=== PATIENT | female | born 1980 | race Caucasian/White ===

== ENCOUNTER 2016-12-12 06:34 | Emergency (ER) | payer OTHER ==
[~2016-12-12] VITALS: Ht 160 cm; Wt 76.2 kg
[2016-12-12 06:36] VITALS: Ht 160 cm; Wt 76.2 kg
[2016-12-12] MEDS ORDERED: ACETAMINOPHEN 500 MG TAB PO STA (07:04)
--- NOTE | 2016-12-12 07:16 | ERD ---
ER Documentation Chief Complaint Date/Time DATE: 12/12/16 TIME: 07:11 Chief Complaint lac right middle finger lac HPI This is a 36-year-old female who presents to the emergency department today for a laceration on her middle finger of her right hand. Patient states she slammed her finger in a door this morning. She has not taken any medication for the pain. Denies any fevers or chills. ROS All systems reviewed and are negative except as per history of present illness. Medications Home Meds Active Scripts Ibuprofen* (Motrin*) 600 Mg Tab, 600 MG PO Q6, #30 TAB Prov:BRAXTON FAJARDO PA-C 12/12/16 Hydrocodone/Acetaminophen (Sterling 5-325 Tablet) 1 Each Tablet, 1 TAB PO Q6H Y for PAIN, #10 TAB Prov:BRAXTON FAJARDO PA-C 12/12/16 Cephalexin* (Keflex*) 500 Mg Capsule, 500 MG PO QID for 7 Days, CAP Prov:BRAXTON FAJARDO PA-C 12/12/16 Allergies Allergies: Coded Allergies: No Known Drug Allergies (Verified Allergy, Unknown, 12/12/16) PMhx/Soc Medical and Surgical Hx: pt denies Medical Hx, pt denies Surgical Hx Physical Exam Vitals Vital Signs Date Time Temp Pulse Resp B/P Pulse Ox O2 Delivery O2 Flow Rate FiO2 12/12/16 06:36 97.8 82 18 139/78 99 Physical Exam Const: NAD Head: Atraumatic Eyes: Normal Conjunctiva ENT: Normal External Ears, Nose and Mouth. Neck: Full range of motion..~ No meningismus. Resp: Clear to auscultation bilaterally Cardio: Regular rate and rhythm, no murmurs Abd: Soft, non tender, non distended. Normal bowel sounds Skin: Right hand middle finger skin avulsion on the palmar aspect at the DIP joint. Bleeding well controlled Back: No midline or flank tenderness MSK: Right hand middle finger skin avulsion on the palmar aspect of the DIP joint. Bleeding well controlled. Full active range of motion in the joint and finger. Pulses 2+. Good cap refill sensation intact Neur: Awake and alert Psych: Normal Mood and Affect Results 24 hrs Current Medications Medications (Trade) Dose Ordered Sig/Pankaj Route PRN Reason Start Time Stop Time Status Last Admin Dose Admin Acetaminophen (Tylenol Tab) 500 mg ONCE STAT PO 12/12/16 07:04 12/12/16 07:06 DC 12/12/16 07:10 Diphtheria/ Tetanus/Acell Pertussis (Adacel) 0.5 ml ONCE ONCE IM* 12/12/16 07:30 12/12/16 07:31 DC 12/12/16 07:11 DIAGNOSTIC IMAGING REPORT Patient: MYRANDA STACK : 1980 Age: 36 Sex: F MR #: [id number] DOS: 12/12/16 0000 Ordering MD: BRAXTON FAJARDO PA-C Location: [facility] Room/Bed: PROCEDURE: XR Finger. CLINICAL INDICATION: Pain and trauma TECHNIQUE: Three views of the right third finger . COMPARISON: None. FINDINGS: The osseous structures are intact. No destructive bony lesions are observed. Interosseous spaces appear normal. Soft tissue irregularity over the tip of the third finger is observed. IMPRESSION: Soft tissue irregularity over the tip of the third finger. Finding likely reflects a site of soft tissue injury/laceration. Intact osseous structures. If there is high clinical suspicion for bony traumatic injury, further evaluation with CT should be considered. RPTAT: AA .Chino Price MD, MD Date Time Electronically viewed and signed by .Chino Price MD, MD on 12/12/2016 07:54 .P/ CC: BRAXTON FAJARDO PA-C Procedures/MDM This 36-year-old female who presents to the emergency department today for a skin avulsion after slamming her finger in the door this morning. On physical exam patient has approximately 1 cm area of skin avulsion on the palmar aspect at her DIP joint on her third middle finger. Bleeding is well-controlled. Patient has full active range of motion in her finger however I did obtain an x- ray given the trauma. Per the radiology report there is soft tissue irregularity over the tip of the third finger. Findings likely suggest site of soft tissue injury or laceration. The osseous structures are intact. There is no evidence of acute fracture or dislocation. The area was cleaned in the usual sterile fashion and Xeroform was applied. This was not up-to-date on her tetanus was given a tetanus vaccine here. She was also given Tylenol for pain as she drove herself here to the emergency department. Patient will be given a prescription for Sterling and Motrin for home. I'll also give her a prescription for Keflex. She was instructed to follow-up in 2 days for a wound check. Patient is afebrile and otherwise well appearing. Low suspicion for sepsis or deep space infection at this time. Patient has full active range of motion at her finger in her joints and I have low suspicion for tendon involvement. Patient's bleeding was well controlled and she is hemodynamically stable. Patient did bring the avulsed skin however she had sitting in her pocket and explained to her that it was not viable tissue at this time and that I could not reattach the skin. Patient understood. At this time the patient is stable for discharge and outpatient management. Patient should follow up with their PCP in the next 1-2 days. They may return to the emergency department sooner for any persistent or worsening of symptoms. Patient understood and agreed with the plan. Departure Diagnosis: Primary Impression: Avulsion of skin of finger Encounter type: initial encounter Qualified Code: S61.209A - Avulsion of skin of finger, initial encounter Condition: BRAXTON Williamson PA-C Dec 12, 2016 07:16
[2016-12-12] MEDS ORDERED: DIPHTH/TET/ACEL PERTUSS (ADULT) 0.5 ML VIAL IM* ONE (07:30)
--- NOTE | 2016-12-12 07:55 | RADRPT ---
PROCEDURE: XR Finger. CLINICAL INDICATION: Pain and trauma TECHNIQUE: Three views of the right third finger . COMPARISON: None. FINDINGS: The osseous structures are intact. No destructive bony lesions are observed. Interosseous spaces linda ear normal. Soft tissue irregularity over the tip of the third finger is observed. IMPRESSION: Soft tissue irregularity over the tip of the third finger. Finding likely reflects a site of soft t issue injury/laceration. Intact osseous structures. If there is high clinical suspicion for bony traumatic injury, further evaluation with CT should be considered. RPTAT: AA .Chino Price MD, MD Date Time Electronically viewed and signed by .Chino Price MD, on 12/12/2016 07:54 .P/
[2016-12-12] MEDS ORDERED: CEPH-443 PO (08:06)
[2016-12-12] MEDS ORDERED: IBUP-1542 PO (08:07)
[2016-12-12] MEDS ORDERED: HYDR-906 PO (08:07)
== END 2016-12-12 08:20 | disposition home or self-care (01) ==
LOC: FTE 06:34
DX: S61.202A Unspecified open wound of right middle finger without damage to nail, initial encounter (principal); W23.1XXA Caught, crushed, jammed, or pinched between stationary objects, initial encounter; Y92.9 Unspecified place or not applicable; Z23 Encounter for immunization
CPT/HCPCS: 73140; 90471